=== PATIENT | male | born 1995 | race African-American/Black ===

== ENCOUNTER 2020-08-27 14:43 | Emergency (ER) | payer MEDICAID ==
[~2020-08-27] VITALS: Ht 172.7 cm; Wt 74.1 kg
[2020-08-27 15:29] LABS: BASOPHILS # (AUTO) 0.01 x10^3/uL (0-0.1); BASOPHILS % (AUTO) 0 % (0-1); EOSINOPHILS # (AUTO) 0.07 x10^3/uL (0-0.4); EOSINOPHILS % (AUTO) 1 % (1-7); LYMPHOCYTES # (AUTO) 2.03 x10^3/uL (1-3.4); LYMPHOCYTES % (AUTO) 27 % (22-44); MD NO; MEAN CORPUSCULAR HGB CONC 32.5 g/dL (33.2-36.2); MEAN PLATELET VOLUME 7.9 fL (7.4-10.4); MONOCYTES # (AUTO) 0.48 x10^3/uL (0.2-0.8); MONOCYTES % (AUTO) 6 % (2-9); NEUTROPHILS # (AUTO) 5.05 x10^3/uL (1.8-6.8); NEUTROPHILS % (AUTO) 66 % (42-75); PLATELET COUNT 289 x10^3/uL (130-400); RED BLOOD COUNT 4.76 x10^6/uL (4.38-5.82); RED CELL DISTRIBUTION WIDTH 13.5 % (9.4-14.8)
[2020-08-27 15:33] LABS: ALBUMIN 3.7 g/dL (3.4-5.0); ANION GAP 5 mmol/L (5-15); CALCIUM 8.8 mg/dL (8.5-10.1); CHLORIDE 105 mmol/L (98-107)
[2020-08-27 15:34] LABS: CREATININE 1.08 mg/dL (0.7-1.3)
--- NOTE | 2020-08-27 15:45 | NUR ---
ELIGIBILITY MANAGER:PT AMBULATORY TO ROOM WITH STEADY GAIT FROM LOBBY WITH CLOTH PAINTER AT THIS TIME
--- NOTE | 2020-08-27 15:52 | NUR ---
FIRST CONTACT WITH PT. PT STATED"IM JUST TIRED AND DISORIENTED, BECAUSE I'VE BEEN WALKING FOR A LONG TIME." PT DENIES ANY PAIN, PHYSICAL COMPLAINTS. PT'S AOX4. RESPS EVEN AND UNLABORED. BP/SPO2 MONITORS IN PLACE. CALL LIGHT WITHIN REACH.
[2020-08-27 15:54] VITALS: BP 110/57
--- NOTE | 2020-08-27 16:22 | NUR ---
PT LEFT WITHOUT DC PAPERS. PA EXPLAINED DC INSTRUCTIONS AND PT VERBALLY UNDERSTANDING.
== END 2020-08-27 16:23 | disposition home or self-care (01) ==
LOC: ED 16:17
DX: R53.83 Other fatigue (principal); R53.1 Weakness; Z59.0 Homelessness
CPT/HCPCS: 36415; 80048; 82040; 85025; 99283